=== PATIENT | male | born 1980 | race Caucasian/White ===

== ENCOUNTER 2017-09-30 12:23 | Emergency (ER) | payer MEDICAID ==
[~2017-09-30] VITALS: Ht 190.5 cm; Wt 89.4 kg
--- NOTE | 2017-09-30 13:02 | Emergency Room Report ---
History of Present Illness General Chief Complaint: Sore Throat Source: Patient Present Illness HPI 37-year-old male presents to the emergency department complaining of sore throat that he rates as 2/10 in severity with intermittent cough and mild nasal congestion x1.5 weeks. Patient denies fevers or chills he reports that on the third day of his symptoms he believes he felt worse however he is concerned that his symptoms are lasting so long when he normally is relatively healthy. Patient denies neck pain or stiffness describes his cough as a dry persistent cough.Denies CP, Palpitations, LOC, AMS, dizziness, Changes in Vision, Sensation , paresthesias, or a sudden severe headache. Patient History Past Medical History: see triage record Past Surgical History: none Pertinent Family History: none Reviewed Nursing Documentation: PMH: Agreed, PSxH: Agreed Nursing Documentation-PM Past Medical History: No Stated History Review of Systems All Other Systems: negative except mentioned in HPI Physical Exam Vital Signs Date Time Temp Pulse Resp B/P (MAP) Pulse Ox O2 Delivery O2 Flow Rate FiO2 09/30/17 12:32 97.9 79 18 133/84 99 Room Air Sp02 EP Interpretation: reviewed, normal General Appearance: no apparent distress, alert, GCS 15, non-toxic Head: normocephalic, atraumatic Eyes: bilateral eye normal inspection, bilateral eye PERRL ENT: hearing grossly normal, normal pharynx, no angioedema, normal voice, uvula midline, moist mucus membranes, other - mild cobble stone appearance to posterior pharynx, no appreciable erythema, no exudates, no tonsillar swelling or tonsillar pillar fullness. Neck: full range of motion, supple/symm/no masses Respiratory: lungs clear, normal breath sounds, speaking full sentences Cardiovascular #1: regular rate, rhythm Musculoskeletal: back normal, gait/station normal, normal range of motion Neurologic: alert, oriented x3, responsive, motor strength/tone normal, sensory intact, speech normal Skin: normal color, no rash, warm/dry, well hydrated Lymphatic: no adenopathy Medical Decision Making PA Attestation Dr. Carter is my supervising Physician whom patient management has been discussed with. Diagnostic Impression: Primary Impression: Sore throat Additional Impression: Post-nasal drainage ER Course 37-year-old male presents to the emergency department complaining of sore throat that he rates as 2/10 in severity with intermittent cough and mild nasal congestion x1.5 weeks. Patient denies fevers or chills he reports that on the third day of his symptoms he believes he felt worse however he is concerned that his symptoms are lasting so long when he normally is relatively healthy. Patient denies neck pain or stiffness describes his cough as a dry persistent cough.Denies CP, Palpitations, LOC, AMS, dizziness, Changes in Vision, Sensation , paresthesias, or a sudden severe headache. Ddx considered but are not limited to: pharyngitis, strep, [employer], ludwigs angina, URI Vital signs: are WNL, pt. is afebrile H&PE are most consistent with: pharyngitis most likely viral in etiology, evidence of post nasal drainage. No indication of bacterial infection at this time. ORDERS: None required at this time as the diagnosis is clinical ED INTERVENTIONS: none required at this time. -Pt. Edu: pt. given reassurance, discussed viral infections vs bacterial, recommended several OTC medications that will help with his symptoms. pt. reports he does not like to take medications, so he declines rx's. DISCHARGE: At this time pt. is stable for d/c to home. Will provide printed patient care instructions, and any necessary prescriptions. Care plan and follow up instructions have been discussed with the patient prior to discharge. Last Vital Signs Date Time Temp Pulse Resp B/P (MAP) Pulse Ox O2 Delivery O2 Flow Rate FiO2 09/30/17 12:32 97.9 79 18 133/84 99 Room Air Disposition: HOME, SELF-CARE Condition: Stable Patient Instructions: Sore Throat Additional Instructions: Take medications as directed. Follow up with a Primary Care Provider in 3-5 days, even if your symptoms have resolved. --Please review list of primary care clinics, if you do not already have a primary care provider Return sooner to ED if new symptoms occur, or current symptoms become worse. - Please note that this Emergency Department Report was dictated using [employer] insights lead technology software, occasionally this can lead to erroneous entry secondary to interpretation by the dictation equipment. Liz Weaver Sep 30, 2017 13:02
[2017-09-30 13:05] VITALS: BP 133/84
== END 2017-09-30 14:51 | disposition home or self-care (01) ==
LOC: EMR 13:02
DX: J02.9 Acute pharyngitis, unspecified (principal); R09.82 Postnasal drip
CPT/HCPCS: 99282